=== PATIENT | female | born 1950 | race Caucasian/White ===

== ENCOUNTER 2017-10-26 08:43 | Day surgery (SDC) | payer MEDICARE, OTHER ==
[2017-10-26] VITALS (8 sets, daily range): BP systolic 112–156; BP diastolic 53–88; PULSE 61–78; RESP 16–20; TEMP 97.6–97.7; O2SAT 94–97
[~2017-10-26] VITALS: Ht 157.5 cm; Wt 109.0 kg
[2017-10-26] MEDS ORDERED: VITATAB56 PO (09:07)
[2017-10-26] MEDS ORDERED: MULT-65 PO (09:07)
[2017-10-26] MEDS ORDERED: OMEGCAP PO (09:07)
[2017-10-26] MEDS ORDERED: VITA200C3 PO (09:07)
[2017-10-26] MEDS ORDERED: FLUT1SPR5 EACH NARE (09:07)
[2017-10-26] MEDS ORDERED: CETI10 PO (09:07)
[2017-10-26] MEDS ORDERED: CALC1TAB87 PO (09:07)
[2017-10-26] MEDS ORDERED: MULT1TAB46 (09:07)
[2017-10-26] MEDS ORDERED: FISHCAP4 PO (09:07)
[2017-10-26 09:54] LABS: AUTOMATED NEUTROPHIL # 2.3 TH/MM3 (1.8-7.7); BASOPHIL % 0.6 % (0.0-2.0); EOSINOPHIL # 0.2 TH/MM3 (0-0.4); EOSINOPHIL % 3.9 % (0.0-4.0); HEMATOCRIT 45.2 % (35.0-46.0); HEMOGLOBIN 15.4 GM/DL (11.6-15.3); LYMPH % 31.4 % (9.0-44.0); LYMPHOCYTE # 1.3 TH/MM3 (1.0-4.8); MEAN CELL VOLUME 95.7 FL (80.0-100.0); MEAN CORPUSCULAR HEMOGLOBIN 32.5 PG (27.0-34.0); MEAN CORPUSCULAR HGB CONC 33.9 % (32.0-36.0); MEAN PLATELET VOLUME 8.7 FL (7.0-11.0); MONO % 7.2 % (0.0-8.0); MONOCYTE # 0.3 TH/MM3 (0-0.9); NEUT % 56.9 % (16.0-70.0); PLATELET COUNT 145 TH/MM3 (150-450); RED BLOOD COUNT 4.73 MIL/MM3 (4.00-5.30); RED CELL DISTRIBUTION WIDTH 13.6 % (11.6-17.2)
[2017-10-26] MEDS ORDERED: SODIUM CHLOR 0.9% 1000 ML IV SCH (10:00)
[2017-10-26] MEDS ORDERED: SODIUM CHLORIDE 2 ML FLUSH PRN IV FLUSH (10:30)
[2017-10-26] MEDS ORDERED: LIDOCAINE HCL 1% 20 ML VIAL ONE (10:47)
[2017-10-26] MEDS ORDERED: MIDAZOLAM HCL 2 MG/2 ML VIAL ONE (11:01)
--- NOTE | 2017-10-26 11:22 | PD.RAD ---
Post CT Procedure Prog Note Pre Procedure Diagnosis: (1) Elevated LFTs Post Procedure Diagnosis: (1) Elevated LFTs Procedure Date: Oct 26, 2017 Supervising Radiologist: Perry Jcaques Proceduralist/Assist: faith morse Estimated blood loss: none Anesthesia: Conscious Sedation Plan of Activity Patient to Unit: ROPU Patient Condition: Good See PACS Report for procedural detail/treatment Perry Jacques MD Oct 26, 2017 11:22
--- NOTE | 2017-10-26 16:24 | RADRPT ---
EXAM DATE/TIME: 10/26/2017 11:09 [place] COMPARISON: No previous studies available for comparison. INDICATIONS : Elevated liver enzymes. SEDATION TIME: 30 minutes BIOPSY SITE: Right flank MEDICATION(S): 1.) 2 mg midazolam (Versed) IV 2.) 100 mcg fentanyl (Sublimaze) IV DEVICE(S): 1.) 18 gauge Tem[place] core biopsy needle MEDICAL HISTORY : Hypertension. Liver disease. SURGICAL HISTORY : None. ENCOUNTER: Initial ACUITY: 1 day PAIN SCORE: 0/10 LOCATION: Right flank A total of one core specimen(s) were obtained and sent to the laboratory for pathologic evaluation. PROCEDURE: 1. CT guided liver biopsy. Prior to the procedure informed consent was obtained. Any appropriate prior imaging studies were rev iewed. Using automated exposure control and adjustment of the mA and/or kV according to patient size, radiat ion dose was kept as low as reasonably achievable to obtain optimal diagnostic quality images. DICOM format image data is available electronically for review and comparison. The site was prepped in a sterile fashion. Full sterile technique was used, including cap, mask, candi rile gloves and gown and a large sterile sheet. Hand hygiene and 2% chlorhexidine and/or betadine/al cohol prep was utilized per protocol for cutaneous antisepsis. The skin and subcutaneous tissues wer e infiltrated with local anesthetic solution. With CT guidance the previously identified target was localized. Biopsy was performed using the presc ribed needle as above. Adequate hemostasis was obtained with compression at the puncture site. Follow-up CT scan reveals no hemorrhage. The patient tolerated the procedure well and there were no complications. The patient was returned to the Radiology Outpatient Unit in stable condition. CONCLUSION: Uncomplicated CT guided biopsy. Perry Jacques MD on October 26, 2017 at 16:21 Board Certified Radiologist. This report was verified electronically.
[2017-10-26] MEDS ORDERED: SODIUM CHLORIDE 2 ML FLUSH BID IV FLUSH SCH (21:00)
== END 2017-10-26 15:35 | disposition home or self-care (01) ==
LOC: HRAD 08:43 → HRIP 08:46 → HRAD 15:35
DX: K75.81 Nonalcoholic steatohepatitis (NASH) (principal); R74.8 Abnormal levels of other serum enzymes; I10 Essential (primary) hypertension; E78.5 Hyperlipidemia, unspecified
CPT/HCPCS: 47000; 77012; 85025; 88307; 88313; J2250; J3010; J7030